=== PATIENT | male | born 1970 | race Caucasian/White ===

== ENCOUNTER 2018-06-09 11:12 | Inpatient (IN) | payer MEDICAID ==
[~2018-06-09] VITALS: Ht 172.7 cm; Wt 108.9 kg
[2018-06-09 11:20] VITALS: BP 135/76
--- NOTE | 2018-06-09 11:30 | NUR ---
PT AMBULATED TO ER BED 8.
--- NOTE | 2018-06-09 11:54 | NUR ---
PATIENT IS A 48 YO MALE BIB SELF FOR REPORTED ABNORMAL LABS WITH A HGB OF 6.7 AWAKE AND ALERT SLIGHTLY PALE. NO ACUTE DISTRESS. Addendum: 06/09/18 at 1426 by S*Bio Amendment undone in EDM - 06/09/18 at 1429 by S*Bio HX: DM, HTN,RFA AMPUTED X 3 YEARS AGO. MED: METFORMIN, GABAPENTIN, GLIPIZIDE
[2018-06-09] MEDS ORDERED: NACL 0.9% 1,000 ML IV ONE (12:11)
[2018-06-09 12:59] LABS: BASOPHILS # (AUTO) 0.1 K/uL (0.00-0.22); EOSINOPHILS # (AUTO) 0.3 K/uL (0-0.4); EOSINOPHILS % (AUTO) 6.5 % (0.0-4.0); HEMATOCRIT 21.1 % (36-52); LYMPHOCYTES # (AUTO) 0.9 K/uL (2.0-11.5); LYMPHOCYTES % (AUTO) 17.6 % (20.5-51.1); MEAN CORPUSCULAR HEMOGLOBIN 15 pg (27-31); MEAN CORPUSCULAR HGB CONC 27 g/dL (33-37); MEAN CORPUSCULAR VOLUME 55.4 fL (80-94); MONOCYTES # (AUTO) 0.4 K/uL (0.8-1.0); MONOCYTES % (AUTO) 7.7 % (1.7-9.3); NEUTROPHILS # (AUTO) 3.3 K/uL (1.8-7.7); NEUTROPHILS % (AUTO) 67.2 % (42.2-75.2); PLATELET COUNT (AUTO) 275 K/uL (140-450); RED CELL DISTRIBUTION WIDTH 20.9 % (11.6-13.7); WHITE BLOOD COUNT (AUTO) 4.9 K/uL (4.8-10.8)
[2018-06-09 13:09] LABS: CREATININE 0.5 mg/dL (0.7-1.3)
[2018-06-09 13:15] LABS: PROTHROMBIN TIME 9.8 secs (10.8-13.4)
[2018-06-09 13:17] LABS: ALBUMIN 3.6 g/dL (3.4-5.0); TOTAL BILIRUBIN 0.5 mg/dL (0.0-1.0)
[2018-06-09 13:28] LABS: HEMOGLOBIN 5.7 g/dL (12.0-18.0)
--- NOTE | 2018-06-09 14:26 | NUR ---
HX: CHRONIC ANEMIA, DM, HTN,RFA AMPUTED X 3 YEARS AGO. MED: METFORMIN, GABAPENTIN, GLIPIZIDE,BENAZEPRIL.
[2018-06-09 15:06] LABS: BILIRUBIN,URINE NEGATIVE (NEGATIVE); BLOOD, URINE NEGATIVE (NEGATIVE); COLOR,URINE YELLOW (YELLOW); LEUKOCYTE ESTERASE ,URINE 1+ (NEGATIVE); NITRITE, URINE NEGATIVE (NEGATIVE); PH,URINE 5.5 (5.0-9.0); UGLUCOSE NEGATIVE (NEGATIVE)
[2018-06-09 15:10] LABS: APPEARANCE,URINE HAZY (CLEAR)
[2018-06-09 15:43] LABS: RBC,URINE NONE SEEN /HPF (0-5)
[2018-06-09] MEDS ORDERED: DEXT 5% / NACL 0.45% 1,000 ML IV SCH (15:59)
[2018-06-09] MEDS ORDERED: ACETAMINOPHEN 325 MG TAB PO PRN (16:00)
[2018-06-09] MEDS ORDERED: ONDANSETRON 4 MG/2 ML VIAL IM/IVP PRN (16:00)
[2018-06-09] MEDS ORDERED: HYDROcodone/APAP 5/325 MG 1 TAB TAB PO PRN (16:00)
[2018-06-09] MEDS ORDERED: MORPHINE SULFATE 2 MG/ML SYR IVP PRN (16:00)
[2018-06-09] MEDS ORDERED: DOCUSATE SODIUM 100 MG GELCAP PO PRN (16:00)
[2018-06-09] MEDS ORDERED: ZOLPIDEM 5 MG TAB PO PRN (16:00)
[2018-06-09] MEDS ORDERED: LORazepam 2 MG/ML VIAL IM/IVP PRN (16:00)
--- NOTE | 2018-06-09 16:42 | NUR ---
Patient will be admitted to care of DR ARELLANO. Admited to TELE. Will go to room 111A. Belongings list completed. Report to MICHAEL RATLIFF.
--- NOTE | 2018-06-09 16:55 | NUR ---
RECEIVED PT FROM ER VIA SUSANA. PT A/O X4, VERBAL. SKIN DRY AND WARM TO TOUCH. S1S2 HEARD. LUNGS CLEAR ON AUSCULTATION. ABDOMEN SOFT ROUND AND NON TENDER. ACTIVE BOWEL SOUND. SKIN INTACT. LEFT AC 20 G. INTACT. DENIES SOB, DIFFICULTY BREATHING. DENIES ANY PAIN AT THIS TIME. KEPT HOB ELEVATED. BED IN LOW POSITION LOCKED. CALL LIGHT WITHIN REACH. WILL CONTINUE TO MONITOR.
[2018-06-09 17:10] LABS: BARBITURATE, URINE NEG. ng/ml (NEG <=200); BENZODIAZEPINE, URINE NEG. ng/mL (NEG <=200); CANNABINOID, URINE NEG. ng/mL (NEG <=50); COCAINE, URINE NEG. ng/mL (NEG <=300); OPIATE, URINE NEG. ng/mL (NEG <=2000); PHENCYCLIDINE SCREEN,URINE NEG. ng/mL (NEG <=25)
[2018-06-09 17:13] LABS: MAGNESIUM 1.7 mg/dL (1.8-2.4); THYROID STIMULATING HORMONE 1.83 uIU/mL (0.34-3.74)
[2018-06-09] MEDS ORDERED: DEXTROSE 50% 50 ML SYR IVP PRN (17:15)
[2018-06-09] MEDS ORDERED: INSULIN LISPRO SLIDING SCALE 100 UNITS/ML VIAL SUBQ PRN (17:15)
[2018-06-09] MEDS ORDERED: GABA400C PO (17:17)
[2018-06-09 17:59] VITALS: BP 154/84
--- NOTE | 2018-06-09 17:59 | NUR ---
US TECH AT BEDSIDE.
[2018-06-09] MEDS: DEXT 5% / NACL 0.9% 500 ML IV SCH (18:55)
[2018-06-09] MEDS ORDERED: MAGNESIUM OXIDE 400 MG TAB PO SCH (19:45)
--- NOTE | 2018-06-09 19:50 | NUR ---
RECEIVED REPORT FROM DAY SHIFT NURSE AT PT BEDSIDE. PT IN STABLE CONDITION. PT FAMILY IS AT BEDSIDE. PT IS A/O X4. IV ACCESS IN L AC 20G, SALINE LOCKED. IV IS PATENT AND INTACT. SKIN IS INTACT. PT HAS R BELOW THE ELBOW AMPUTATION. PT HAS NO C/O PAIN AT THIS TIME. BED IS LOCKED, LOW POSITION WITH SIDE RAILS UP X2. CALL LIGHT IS WITHIN REACH. BOARD UPDATED. WILL CONTINUE TO MONITOR PT.
--- NOTE | 2018-06-09 19:50 | NUR ---
ENDORSED TO POCKETED SPRING MACHINE OPERATOR RN FOR CONTINUITY OF CARE. PT ON STABLE CONDITION.
[2018-06-09 20:00] VITALS: BP 135/62
[2018-06-09] MEDS: BLOOD GLUCOSE MONITORING 1 DEV DEV FS SCH (20:32)
[2018-06-09] MEDS ORDERED: GLIP5TAB4 PO (20:42)
[2018-06-09] MEDS ORDERED: METF1000 PO (20:42)
[2018-06-09] MEDS ORDERED: BENA20TA PO (20:42)
--- NOTE | 2018-06-09 20:42 | NUR ---
PT INFORMED ME THAT HE TOOK HIS HOME MEDICATIONS FOR DM. INFORMED MD. PER MD WILL HOLD INSULIN COVERAGE FOR BS OF 162. EDUCATED PT ON IMPORTANCE OF NOT TAKING HOME MEDICATIONS WHILE IN THE HOSPITAL AND LET PT KNOW HIS HOME MEDICATIONS HAVE NOW BEEN PUT INTO THE EMAR BY MD. PT VERBALIZED UNDERSTANDING.
[2018-06-09] MEDS: glipiZIDE 5 MG TAB PO SCH (21:00)
[2018-06-09] MEDS ORDERED: metFORMIN 500 MG TAB PO SCH (21:00)
--- NOTE | 2018-06-09 21:00 | NUR ---
SCHEDULED GLIPIZIDE AND METFORMIN NOT ADMINISTERED D/T PT ALREADY TOOK THEM. AWARE.
[2018-06-09] MEDS: ACETAMINOPHEN 325 MG TAB PO SCH (22:31)
--- NOTE | 2018-06-09 22:32 | NUR ---
PER MD ORDERS, BENADRYL AND TYLENOL GIVEN PRE TRANSFUSION. PT TOLERATED WELL. WILL CONTINUE TO MONITOR.
--- NOTE | 2018-06-09 22:45 | NUR ---
BLOOD TRANSFUSION STARTED. PT IN STABLE CONDITION. PRE TRANSFUSION VS STABLE. NO C/O PAIN. WILL CONTINUE TO MONITOR.
--- NOTE | 2018-06-09 23:15 | NUR ---
PT RESTING COMFORTABLY IN BED. NO SIGNS OF DISTRESS. WILL CONTINUE TO MONITOR PT.
[2018-06-10] VITALS: BP 142/55
[2018-06-10] MEDS: FUROSEMIDE 20 MG TAB PO SCH ×2 (00:13→03:02)
--- NOTE | 2018-06-10 00:13 | NUR ---
ADMINISTERED SCHEDULED MEDICATION. BLOOD TRANSFUSION STILL IN PROCESS. PT IS TOLERATING WELL. VS STABLE. NO C/O PAIN. WILL CONTINUE TO MONITOR PT.
--- NOTE | 2018-06-10 01:10 | NUR ---
BLOOD TRANSFUSION COMPLETED. PT VS STABLE. NO C/O PAIN. WILL CONTINUE TO MONITOR PT.
--- NOTE | 2018-06-10 02:25 | NUR ---
SECOND UNIT OF PRBC STARTED. PT IN STABLE CONDITION. VS WITHIN NORMAL LIMITS. WILL CONTINUE TO MONITOR.
[2018-06-10] MEDS: ACETAMINOPHEN 325 MG TAB PO SCH ×2 (03:02→08:00)
--- NOTE | 2018-06-10 03:02 | NUR ---
SCHEDULED MEDICATIONS ADMINISTERED. PT TOLERATED WELL. VS WITHIN NORMAL LIMITS. NO C/O PAIN AT THIS TIME. WILL CONTINUE TO MONITOR PT.
[2018-06-10 04:00] VITALS: BP 139/79
[2018-06-10] MEDS: BLOOD GLUCOSE MONITORING 1 DEV DEV FS SCH ×4 (05:26→20:48)
--- NOTE | 2018-06-10 05:40 | NUR ---
SECOND BAG OF PRBC INFUSION COMPLETE. PT VS WITHIN NORMAL LIMITS. NO SIGNS OF DISTRESS. WILL CONTINUE TO MONITOR.
--- NOTE | 2018-06-10 07:25 | NUR ---
ENDORSED PT TO DAY SHIFT NURSE FOR CONTINUITY OF CARE. PT IN STABLE CONDITION.
--- NOTE | 2018-06-10 07:30 | NUR ---
RECEIVED REPORT FROM CHILD CARE SPECIALIST RN. PATIENT IN STABLE CONDITION. AAO X4. NO COMPLAINTS OF PAIN OR DISCOMFORT. PT IS AMBULATORY. SKIN INTACT. AMPUTATED RIGHT FA NOTED. LUNGS CTA. IV SITE PATENT AND ASYMPTOMATIC. ALL SAFETY MEASURES IN PLACE, WILL CONTINUE TO MONITOR. UPDATED BOARD AND ORIENTED PATIENT.
[2018-06-10 07:39] LABS: T4 (THYROXINE) 8.9 ug/dL (4.5-12.0)
[2018-06-10 07:41] LABS: EOSINOPHILS # (AUTO) 0.3 K/uL (0-0.4); HEMATOCRIT 24.9 % (36-52); HEMOGLOBIN 7.4 g/dL (12.0-18.0); LYMPHOCYTES # (AUTO) 1.1 K/uL (2.0-11.5); LYMPHOCYTES % (AUTO) 24.5 % (20.5-51.1); MEAN CORPUSCULAR HEMOGLOBIN 18 pg (27-31); MEAN CORPUSCULAR HGB CONC 30 g/dL (33-37); MEAN CORPUSCULAR VOLUME 60.1 fL (80-94); MONOCYTES # (AUTO) 0.4 K/uL (0.8-1.0); MONOCYTES % (AUTO) 9.7 % (1.7-9.3); NEUTROPHILS # (AUTO) 2.7 K/uL (1.8-7.7); NEUTROPHILS % (AUTO) 58.8 % (42.2-75.2); PLATELET COUNT (AUTO) 267 K/uL (140-450); RED BLOOD CELL COUNT(AUTO) 4.14 MIL/uL (4.20-6.10); RED CELL DISTRIBUTION WIDTH 27.7 % (11.6-13.7); WHITE BLOOD COUNT (AUTO) 4.6 K/uL (4.8-10.8)
[2018-06-10 08:00] VITALS: BP 137/77
[2018-06-10 08:05] LABS: ANION GAP 10.7 (8-16); CARBON DIOXIDE 26.8 mmol/L (21-32); CREATININE 0.6 mg/dL (0.7-1.3); POTASSIUM 3.5 mmol/L (3.5-5.1)
[2018-06-10 08:16] LABS: MAGNESIUM 1.8 mg/dL (1.8-2.4)
[2018-06-10 08:21] LABS: CHOL/HDL RATIO 3.9 (1-4.5)
--- NOTE | 2018-06-10 08:45 | NUR ---
PATIENT HAS BEEN SCREENED AND CATEGORIZED MODERATE NUTRITION RISK. PATIENT WILL BE SEEN WITHIN 3-5 DAYS OF ADMISSION. 06/12/18 06/14/[address]
[2018-06-10] MEDS ORDERED: GABAPENTIN 100 MG CAP PO SCH (09:00)
[2018-06-10] MEDS: FERROUS SULFATE 325 MG TABEC PO SCH ×3 (09:26→16:38)
[2018-06-10] MEDS: GABAPENTIN 300 MG CAP PO SCH ×3 (09:26→16:38)
[2018-06-10] MEDS: metFORMIN 500 MG TAB PO SCH ×2 (09:26→16:38)
[2018-06-10] MEDS: glipiZIDE 5 MG TAB PO SCH ×2 (09:26→20:47)
[2018-06-10] MEDS: GABAPENTIN 100 MG CAP PO SCH ×3 (09:27→16:38)
[2018-06-10] MEDS: BENAZEPRIL 5 MG TAB PO SCH (09:34)
[2018-06-10] MEDS: SODIUM FERRIC GLUCONATE 125 MG in NACL 0.9% 100 ML IV SCH (09:42)
[2018-06-10] MEDS: DEXT 5% / NACL 0.9% 500 ML IV SCH (09:45)
--- NOTE | 2018-06-10 10:15 | NUR ---
EXPLAINED TO PT THE NEED TO COLLECT OCCULT STOOL SAMPLE. PT VERBALIZED UNDERSTANDING AND WILL NOTIFY RN WHEN SAMPLE IS READY. HAT PLACED IN TOILET.
--- NOTE | 2018-06-10 11:29 | NUR ---
OCCULT BLOOD SAMPLE COLLECTED. WILL SEND TO LAB.
--- NOTE | 2018-06-10 11:55 | NUR ---
CM NOTE INITIAL REVIEW FAXED TO [facility] [phone] CM BELKYS Manuel PH# [phone]
[2018-06-10 12:00] VITALS: BP 129/74
[2018-06-10 12:37] LABS: FOLIC ACID 13.9 ng/mL (>3.0)
--- NOTE | 2018-06-10 13:20 | NUR ---
FAMILY MEMBER SEEN AT BEDSIDE. PT IS RESTING IN BED, AAO X4. NO COMPLAINTS OF PAIN OR DISCOMFORT. Addendum: 06/10/18 at 1943 by Becky Vega Meng, RN EXPLAINED PLAN OF CARE TO PT AND FAMILY MEMBER AT BEDSIDE. PT VERBALIZED COMPLETE UNDERSTANDING.
--- NOTE | 2018-06-10 14:10 | NUR ---
PT COMPLAINING OF ONE PASSING INSTANCE OF NAUSEA. INSTRUCTED PT TO NOTIFY RN IF NAUSEA EXPERIENCED AGAIN. WILL CONTINUE TO MONITOR.
--- NOTE | 2018-06-10 15:20 | NUR ---
PT DENIES NAUSEA AND VOMITING. WILL CONTINUE TO MONITOR.
[2018-06-10 16:00] VITALS: BP 137/77
--- NOTE | 2018-06-10 16:36 | NUR ---
SCHEDULED MEDICATIONS ADMINISTERED PER MD ORDERS. NO COMPLAINTS OF PAIN OR DISCOMFORT. WILL CONTINUE TO MONITOR.
--- NOTE | 2018-06-10 17:45 | NUR ---
DR. CARRASCO IN ROOM TO EXPLAIN PLAN OF CARE TO PT.
--- NOTE | 2018-06-10 19:15 | NUR ---
RECEIVED REPORT FROM DAY SHIFT NURSE AT PT BEDSIDE. PT IS IN STABLE CONDITION. FAMILY IS AT BEDSIDE. PT IS A/O X4. PT IS ON RA. SKIN IS INTACT. NO C/O PAIN AT THIS TIME. BED IS LOCKED, LOW POSITION WITH SIDE RAILS UP X2. BOARD UPDATED. CALL LIGHT IS WITHIN REACH. WILL CONTINUE TO MONITOR PT.
--- NOTE | 2018-06-10 19:30 | NUR ---
ENDORSED PLAN OF CARE TO LEAD CASHIER RN. PT IN STABLE CONDITION.
--- NOTE | 2018-06-10 19:42 | NUR ---
EXPLAINED PLAN OF CARE TO PT AND FAMILY MEMBER AT BEDSIDE. PT VERBALIZED COMPLETE UNDERSTANDING. Addendum: 06/10/18 at 1943 by Becky Vega Meng, RN WRONG TIME.
[2018-06-10 20:00] VITALS: BP 117/72
--- NOTE | 2018-06-10 20:48 | NUR ---
BS CHECKED, 127. NO INSULIN COVERAGE NEEDED PER MD ORDERS. ALL PT NEEDS ARE MET AT THIS TIME. WILL CONTINUE TO MONITOR.
[2018-06-10 21:15] LABS: EOSINOPHILS % (MANUAL) 4 % (0-4); LYMPHOCYTES % (MANUAL) 26 % (20-46); MONOCYTES % (MANUAL) 10 % (5-12)
--- NOTE | 2018-06-10 22:54 | NUR ---
PT RESTING IN BED WATCHING TV. ALL NEEDS ARE MET AT THIS TIME. WILL CONTINUE TO MONITOR PT.
[2018-06-11] VITALS: BP 144/72
--- NOTE | 2018-06-11 00:43 | NUR ---
PT ASLEEP IN BED. NO SIGNS OR SYMPTOMS OF DISTRESS. WILL CONTINUE TO MONITOR.
--- NOTE | 2018-06-11 02:33 | NUR ---
NO CHANGE IN CONDITION. WILL CONTINUE TO MONITOR PT.
[2018-06-11 04:00] VITALS: BP 124/72
--- NOTE | 2018-06-11 04:52 | NUR ---
PT RESTING IN BED COMFORTABLY WATCHING TV. ALL NEEDS ARE MET AT THIS TIME. WILL CONTINUE TO MONITOR.
[2018-06-11] MEDS: BLOOD GLUCOSE MONITORING 1 DEV DEV FS SCH ×2 (05:56→11:48)
--- NOTE | 2018-06-11 05:56 | NUR ---
BS CHECKED, 97. PER MD ORDERS NO COVERAGE NEEDED. WILL CONTINUE TO MONITOR.
--- NOTE | 2018-06-11 07:19 | NUR ---
ENDORSED PT TO DAY SHIFT NURSE FOR CONTINUITY OF CARE. PT IN STABLE CONDITION.
--- NOTE | 2018-06-11 07:30 | NUR ---
RECEIVED PT FROM PM NURSE, PT AWAKE, ALERT. ON ROOM AIR, NO S/S OF RESPIRATORY DISTRESS NOTED. LUNGS SOUND CLEAR, NO COUGH NOTED. IV TO LEFT AV # 20, IT IS LEAKING ,WILL INSERT A NEW ONE. PT AGREED. ABD SOFT, NON TENDER. PT ABLE TO AMBULATE. POC EXPLAINED TO PT, PT VERBALIZED UNDERSTANDING, CALL LIGHT IN REACH. WILL CONTINUE TO MONITOR.
[2018-06-11 08:00] VITALS: BP 129/81
--- NOTE | 2018-06-11 08:00 | NUR ---
INSERTED NEW IV TO LEFT HAND # 22.
[2018-06-11] MEDS: GABAPENTIN 300 MG CAP PO SCH ×2 (08:12→12:29)
[2018-06-11] MEDS: glipiZIDE 5 MG TAB PO SCH (08:13)
[2018-06-11] MEDS: BENAZEPRIL 5 MG TAB PO SCH (08:13)
[2018-06-11] MEDS: metFORMIN 500 MG TAB PO SCH (08:13)
[2018-06-11] MEDS: GABAPENTIN 100 MG CAP PO SCH ×2 (08:14→12:29)
[2018-06-11] MEDS: FERROUS SULFATE 325 MG TABEC PO SCH ×2 (08:14→12:29)
[2018-06-11] MEDS ORDERED: FER325 PO (08:15)
[2018-06-11 08:29] LABS: BASOPHILS # (AUTO) 0.1 K/uL (0.00-0.22); BASOPHILS % (AUTO) 1.1 % (0.0-2.0); EOSINOPHILS # (AUTO) 0.3 K/uL (0-0.4); EOSINOPHILS % (AUTO) 5.7 % (0.0-4.0); HEMATOCRIT 25.1 % (36-52); HEMOGLOBIN 7.6 g/dL (12.0-18.0); LYMPHOCYTES # (AUTO) 1.1 K/uL (2.0-11.5); LYMPHOCYTES % (AUTO) 18.5 % (20.5-51.1); MEAN CORPUSCULAR HEMOGLOBIN 18 pg (27-31); MEAN CORPUSCULAR HGB CONC 30 g/dL (33-37); MEAN CORPUSCULAR VOLUME 60.1 fL (80-94); MONOCYTES # (AUTO) 0.5 K/uL (0.8-1.0); MONOCYTES % (AUTO) 8.5 % (1.7-9.3); NEUTROPHILS # (AUTO) 3.9 K/uL (1.8-7.7); NEUTROPHILS % (AUTO) 66.2 % (42.2-75.2); PLATELET COUNT (AUTO) 274 K/uL (140-450); RED BLOOD CELL COUNT(AUTO) 4.17 MIL/uL (4.20-6.10); RED CELL DISTRIBUTION WIDTH 27.3 % (11.6-13.7); WHITE BLOOD COUNT (AUTO) 5.9 K/uL (4.8-10.8)
[2018-06-11 08:48] LABS: ANION GAP 13.2 (8-16); CARBON DIOXIDE 25.2 mmol/L (21-32); CREATININE 0.5 mg/dL (0.7-1.3); POTASSIUM 3.4 mmol/L (3.5-5.1)
--- NOTE | 2018-06-11 09:00 | NUR ---
DUE MEDS GIVEN, PT TOLERATED WELL.
[2018-06-11 09:14] LABS: MAGNESIUM 1.8 mg/dL (1.8-2.4); PHOSPHORUS 4.3 mg/dL (2.5-4.9)
[2018-06-11] MEDS: SODIUM FERRIC GLUCONATE 125 MG in NACL 0.9% 100 ML IV SCH (09:22)
--- NOTE | 2018-06-11 10:05 | NUR ---
PT AWAKE, ALERT. EXPLAINED TO PT I RECEIVED DISCHARGE ORDER FROM . PT STATED HE WANTS TO BE DISCHARGED AT 1400 HE NEEDS HIS TO GIVE HIM A RIDE.
--- NOTE | 2018-06-11 11:13 | NUR ---
FAXED CONCURRENT REVIEW INCLUDING DISCHARGE SUMMARY TO [facility] [place] [phone] PHONE BELKYS [phone]
[2018-06-11 12:00] VITALS: BP 128/80
--- NOTE | 2018-06-11 12:00 | NUR ---
ASSIST PT TO GO TO BATH ROOM, NO DISTRESS OR DISCOMFORT NOTED.
[2018-06-11] MEDS ORDERED: POTASSIUM CHLORIDE 10 MEQ TABER PO SCH (13:00)
--- NOTE | 2018-06-11 14:25 | NUR ---
PT'S PRESENT TO BEDSIDE, PT REQUESTED HIS TO SIGN DISCHARGE PAPER DUE TO HIS RIGHT ARM AMPUTATION. PT AWAKE, ALERT. NO S/S OF RESPIRATORY DISTRESS NOTED. PRESCRIPTION GIVEN. DISCHARGE PAPER SIGNED AND VERBALIZED UNDERSTANDING,ALL PERSONAL BELONGINGS WITH PT. IV REMOVED, QUESTIONS ANSWERED. OFFERED PT WHEELCHAIR, PT STATED HE WANTS TO WALK BY HIMSELF. PT LEFT WITH HIS WITH STEADY GAIT, PT STABLE UPON DISCHARGE.
== END 2018-06-11 14:25 | disposition home or self-care (01) | DRG 663 ==
LOC: MED 11:12 → MTU 15:59
PROVIDERS: ADMIT General Practice; ATTEND General Practice
PROC: 30233N1 Transfusion of Nonautologous Red Blood Cells into Peripheral Vein, Percutaneous Approach (ICD-10-PCS; principal; 2018-06-09)
DX: D50.9 Iron deficiency anemia, unspecified (principal); E11.42 Type 2 diabetes mellitus with diabetic polyneuropathy; E66.01 Morbid (severe) obesity due to excess calories; E83.42 Hypomagnesemia; I10 Essential (primary) hypertension; F32.9 Major depressive disorder, single episode, unspecified; G47.33 Obstructive sleep apnea (adult) (pediatric); Z89.201 Acquired absence of right upper limb, unspecified level; Z68.36 Body mass index [BMI] 36.0-36.9, adult; Z79.84 Long term (current) use of oral hypoglycemic drugs; Z79.899 Other long term (current) drug therapy; Z83.3 Family history of diabetes mellitus; Z82.49 Family history of ischemic heart disease and other diseases of the circulatory system; Z71.3 Dietary counseling and surveillance
CPT/HCPCS: 36415; 71045; 80048; 80053; 80305; 81001; 82272; 82607; 82728; 82746; 82948; 83036; 83540; 83690; 83735; 83880; 84100; 84134; 84436; 84443; 84484; 85025; 85045; 85610; 85730; 86886; 86900; 86901; 86920; 87081; 87086; 93005; 93925; 93970; 96360; 96361; 99285; J1815; J2916; J7030; J7042; P9016; Q0092; Q0163

== ENCOUNTER 2019-04-29 11:02 | Day surgery (SDC) | payer MEDICAID ==
[~2019-04-29] VITALS: Ht 172.7 cm; Wt 108.9 kg
[~2019-04-29 11:02] MED LIST: BENA20TA PO; FER325 PO; GABA400C PO; GLIP5TAB4 PO; METF1000 PO
[2019-04-29] MEDS ORDERED: LIDOCAINE 2% 100 MG/5 ML UJET TP ONE (13:42)
[2019-04-29] MEDS ORDERED: fentaNYL 0.05 MG/ML VIAL ONE (13:42)
== END 2019-04-29 15:57 | disposition home or self-care (01) ==
LOC: MOR 11:02 → MMU 11:03 → MOR 15:57
PROVIDERS: ATTEND Internal Medicine Gastroenterology
DX: D12.3 Benign neoplasm of transverse colon (principal); D37.4 Neoplasm of uncertain behavior of colon; D50.0 Iron deficiency anemia secondary to blood loss (chronic); I10 Essential (primary) hypertension; E11.40 Type 2 diabetes mellitus with diabetic neuropathy, unspecified
CPT/HCPCS: 45380; 45381; 82948; 88305; J3010

== ENCOUNTER 2019-07-11 11:45 | Emergency (ER) | payer MEDICAID ==
[~2019-07-11] VITALS: Ht 172.7 cm; Wt 104.3 kg
[2019-07-11 11:55] VITALS: BP 128/84
[2019-07-11 12:39] VITALS: BP 128/84
== END 2019-07-11 12:39 | disposition home or self-care (01) ==
LOC: MED 11:45
DX: Z01.810 Encounter for preprocedural cardiovascular examination (principal); E11.9 Type 2 diabetes mellitus without complications; I10 Essential (primary) hypertension; Z98.890 Other specified postprocedural states; Z79.899 Other long term (current) drug therapy; Z79.84 Long term (current) use of oral hypoglycemic drugs
CPT/HCPCS: 93005; 99283

== ENCOUNTER 2022-01-29 12:26 | Emergency (ER) | payer MEDICAID ==
[~2022-01-29] VITALS: Ht 172.7 cm; Wt 98.2 kg
[~2022-01-29 12:26] MED LIST changes: +GLIP5TAB14 PO; -GLIP5TAB4 PO
[2022-01-29 12:51] VITALS: BP 148/96
--- NOTE | 2022-01-29 13:02 | NUR ---
PT TO T[facility]CRACK[facility]
--- NOTE | 2022-01-29 13:42 | NUR ---
51Y MALE BIB SELF DUE TO RLQ PAIN AND N/V SINCE 01/25/22. PER PATIENT HE ONLY FEELS THE PAIN IN HIS RLQ WHEN HE IS LAYING ON HIS R SIDE. DENIES ANY ABDOMINAL PAIN WHEN SITTING, STANDING, OR LAYING ON L SIDE. PT STATED HE HAS BEEN FEELING N/V AND IS UNABLE TO KEEP ANY FOOD/LIQUIDS DOWN. BOWEL SOUNDS ACTIVE. ABDOMEN IS SOFT AND NON-TENDER. ACCUCHECK 185. PT A&OX4, EQUAL CHEST RISE AND FALL. UNLABORED RESPIRATIONS. PT HOB ELEVATED FOR COMFORT. PMH: DM, RT ARM AMPUTATION NKA
--- NOTE | 2022-01-29 14:26 | NUR ---
DR. CABAN BEDSIDE EVALUATING PT
[2022-01-29] MEDS ORDERED: ONDANSETRON 4 MG TAB PO ONE (14:35)
[2022-01-29] MEDS ORDERED: FAMOTIDINE 20 MG TAB PO ONE (14:35)
--- NOTE | 2022-01-29 14:53 | NUR ---
LAB BEDSIDE COLLECTING BLOODWORK
[2022-01-29 15:11] LABS: BASOPHILS % (AUTO) 0.2 % (0.0-2.0); EOSINOPHILS % (AUTO) 0.6 % (0.0-4.0); HEMATOCRIT 45.6 % (36-52); HEMOGLOBIN 15.5 g/dL (12.0-18.0); LYMPHOCYTES % (AUTO) 17.1 % (20.5-51.1); MEAN CORPUSCULAR HEMOGLOBIN 31 pg (27-31); MEAN CORPUSCULAR HGB CONC 34 g/dL (33-37); MEAN CORPUSCULAR VOLUME 90.8 fL (80-94); MONOCYTES # (AUTO) 0.4 K/uL (0.8-1.0); MONOCYTES % (AUTO) 7.5 % (1.7-9.3); NEUTROPHILS # (AUTO) 4.3 K/uL (1.8-7.7); NEUTROPHILS % (AUTO) 74.6 % (42.2-75.2); PLATELET COUNT (AUTO) 214 K/uL (140-450); RED BLOOD CELL COUNT(AUTO) 5.02 MIL/uL (4.20-6.10); RED CELL DISTRIBUTION WIDTH 13.7 % (11.6-13.7); WHITE BLOOD COUNT (AUTO) 5.8 K/uL (4.8-10.8)
[2022-01-29 15:13] VITALS: BP 149/78
--- NOTE | 2022-01-29 15:14 | NUR ---
PT REASSESED, STATED THAT THE NAUSEA AND PAIN WERE DECREASED, STATED THAT "THEIR STOMACH WAS JUST SORE FROM ALL THE VOMITING"
[2022-01-29 15:34] LABS: ALBUMIN 3.8 g/dL (3.4-5.0); ANION GAP 11.3 (8-16); ASPARTATE AMINOTRANSFERASE 30 U/L (15-37); CARBON DIOXIDE 29.2 mmol/L (21-32); CHLORIDE 101 mmol/L (98-107); CREATININE 0.7 mg/dL (0.6-1.3); GFR ARICAN-AMERICAN 152 mL/min (>90); GLUCOSE 131 mg/dL (74-106); LIPASE 77 U/L (73-393); POTASSIUM 3.5 mmol/L (3.5-5.1); SODIUM SERUM 138 mmol/L (136-145); TOTAL BILIRUBIN 0.7 mg/dL (0.0-1.0); UREA NITROGEN, BLOOD 6 mg/dL (7-18)
[2022-01-29] MEDS ORDERED: ONDA-188 PO (16:02)
[2022-01-29] MEDS ORDERED: MAG355OR2 PO (16:02)
[2022-01-29] MEDS ORDERED: FAMO-90 PO (16:02)
--- NOTE | 2022-01-29 16:17 | NUR ---
Patient discharged with v/s stable. Written and verbal after care instructions ABOUT GASTRITIS AND N/V given and explained. Patient alert, oriented and verbalized understanding of instructions. Ambulatory with steady gait. All questions addressed prior to discharge. ID band removed. Patient advised to follow up with PMD. Rx of PEPCID, MAALOX MAX STRENGTH SUSPENSION, ZOFRAN ODT given. Patient educated on indication of medication including possible reaction and side effects. Opportunity to ask questions provided and answered.
== END 2022-01-29 16:17 | disposition home or self-care (01) ==
LOC: MED 12:26
DX: K29.70 Gastritis, unspecified, without bleeding (principal); E11.65 Type 2 diabetes mellitus with hyperglycemia; Z79.899 Other long term (current) drug therapy
CPT/HCPCS: 36415; 80053; 81002; 82948; 83690; 84484; 85025; 93005; 99284; Q0162

== ENCOUNTER 2022-02-02 07:52 | Emergency (ER) | payer MEDICAID ==
[~2022-02-02] VITALS: Ht 172.7 cm; Wt 98.0 kg
[~2022-02-02 07:52] MED LIST changes: +FAMO-90 PO; +MAG355OR2 PO; +ONDA-188 PO
[2022-02-02 07:57] VITALS: BP 143/86
[2022-02-02] MEDS: NACL 0.9% 1,000 ML IV ONE (08:32)
[2022-02-02] MEDS: ONDANSETRON 4 MG/2 ML VIAL IVP ONE (08:34)
[2022-02-02] MEDS: MORPHINE SULFATE 4 MG/ML SYR IVP ONE (08:36)
[2022-02-02 08:37] LABS: BASOPHILS % (AUTO) 0.5 % (0.0-2.0); EOSINOPHILS # (AUTO) 0.1 K/uL (0-0.4); EOSINOPHILS % (AUTO) 1.6 % (0.0-4.0); HEMATOCRIT 45.1 % (36-52); HEMOGLOBIN 15.4 g/dL (12.0-18.0); LYMPHOCYTES % (AUTO) 14.3 % (20.5-51.1); MEAN CORPUSCULAR HEMOGLOBIN 31 pg (27-31); MEAN CORPUSCULAR HGB CONC 34 g/dL (33-37); MEAN CORPUSCULAR VOLUME 90.6 fL (80-94); MONOCYTES # (AUTO) 0.6 K/uL (0.8-1.0); NEUTROPHILS % (AUTO) 74.6 % (42.2-75.2); PLATELET COUNT (AUTO) 213 K/uL (140-450); RED BLOOD CELL COUNT(AUTO) 4.98 MIL/uL (4.20-6.10); RED CELL DISTRIBUTION WIDTH 13.7 % (11.6-13.7); WHITE BLOOD COUNT (AUTO) 6.7 K/uL (4.8-10.8)
[2022-02-02] MEDS: diphenhydrAMINE 50 MG/ML VIAL IVP ONE (09:28)
[2022-02-02] MEDS: METOCLOPRAMIDE 10 MG/2 ML INJ VIAL IVP ONE (09:29)
[2022-02-02 10:27] LABS: ALBUMIN 3.7 g/dL (3.4-5.0); ANION GAP 17.9 (8-16); CARBON DIOXIDE 24.8 mmol/L (21-32); CREATININE 0.8 mg/dL (0.6-1.3); POTASSIUM 3.7 mmol/L (3.5-5.1); TOTAL BILIRUBIN 0.9 mg/dL (0.0-1.0)
[2022-02-02 10:47] LABS: BILIRUBIN,URINE NEGATIVE (NEGATIVE); BLOOD, URINE NEGATIVE (NEGATIVE); COLOR,URINE YELLOW (YELLOW); LEUKOCYTE ESTERASE ,URINE TRACE (NEGATIVE); NITRITE, URINE NEGATIVE (NEGATIVE); UGLUCOSE NEGATIVE (NEGATIVE)
[2022-02-02 10:50] LABS: APPEARANCE,URINE SLIGHTLY HAZY (CLEAR)
[2022-02-02 10:57] LABS: HYALINE CASTS, URINE 0-10 /LPF (None Seen); RBC,URINE NONE SEEN /HPF (0-5); WBC,URINE 0-5 /HPF (0-5)
[2022-02-02] MEDS ORDERED: BEN10 PO (11:47)
[2022-02-02] MEDS ORDERED: ONDA-188 PO (11:47)
[2022-02-02 12:03] VITALS: BP 173/101
== END 2022-02-02 12:03 | disposition home or self-care (01) ==
LOC: MED 07:52
DX: R11.2 Nausea with vomiting, unspecified (principal); R10.9 Unspecified abdominal pain; R63.0 Anorexia; E11.9 Type 2 diabetes mellitus without complications; Z79.899 Other long term (current) drug therapy; Z79.84 Long term (current) use of oral hypoglycemic drugs; Z89.211 Acquired absence of right upper limb below elbow; Z98.890 Other specified postprocedural states
CPT/HCPCS: 36415; 74176; 80053; 81001; 83690; 85025; 96361; 96374; 96375; 99285; J1200; J2270; J2405; J2765

== ENCOUNTER 2022-04-08 08:43 | Emergency (ER) | payer MEDICAID ==
[~2022-04-08] VITALS: Ht 172.7 cm; Wt 95.8 kg
[~2022-04-08 08:43] MED LIST changes: +BEN10 PO; +METF-1274 PO; -METF1000 PO
[2022-04-08 08:58] VITALS: BP 136/90
--- NOTE | 2022-04-08 09:08 | NUR ---
pt ambulated to bed 12 at this time
--- NOTE | 2022-04-08 09:10 | NUR ---
54 y/o male bib , c/o central abd pain, nausea, burping and bloating for 1 month. pt states he was atking pepcid, peptobismol and gas x for relief. states he does smoking marijuana and etoh use daily. pt was seen here on 01/29/2022 and diagnosed with gastritis. He was seen here 4 days later and dx with hepatomegaly. pt has an appointment see programmer engineering and scientific in a few days. skin is pink/warm/dry. a&o x4 with even and steady gait. lungs clear bl, heart rate even and regular. pt denies dysuria, hematuria, urinary frequency or retention, or anyone sick in the household with the same symptoms. pt denies any fever, cp, sob, or cough at this time. pt states pain is 9/10 at this time. patient positioned for comfort. hob elevated. bed down. ermd made aware of pt. pmh: hepatomegaly, hernia nka med: denies
[2022-04-08] MEDS ORDERED: ONDA-188 PO (10:24)
[2022-04-08] MEDS ORDERED: OMEP40EC24 PO (10:24)
--- NOTE | 2022-04-08 10:51 | NUR ---
Patient discharged with v/s stable. Written and verbal after care instructions ABOUT GASTRITIS, VENTRAL HERNIA, CANNABIS USE DISORDER, GASTROPARESIS given and explained. Patient alert, oriented and verbalized understanding of instructions. Ambulatory with steady gait. All questions addressed prior to discharge. ID band removed. Patient advised to follow up with PMD. Rx of OMEPRAZOLE AND ZOFRAN given. Patient educated on indication of medication including possible reaction and side effects. Opportunity to ask questions provided and answered.
== END 2022-04-08 10:51 | disposition home or self-care (01) ==
LOC: MED 08:43
DX: K43.9 Ventral hernia without obstruction or gangrene (principal); K29.70 Gastritis, unspecified, without bleeding; E11.9 Type 2 diabetes mellitus without complications; F12.10 Cannabis abuse, uncomplicated; F10.129 Alcohol abuse with intoxication, unspecified; Z79.4 Long term (current) use of insulin; Z79.899 Other long term (current) drug therapy
CPT/HCPCS: 99283

== ENCOUNTER 2023-01-27 09:58 | Emergency (ER) | payer MEDICAID ==
[~2023-01-27] VITALS: Ht 172.7 cm; Wt 90.7 kg
[~2023-01-27 09:58] MED LIST changes: +OMEP40EC24 PO
[2023-01-27 10:12] VITALS: BP 128/77
--- NOTE | 2023-01-27 10:14 | NUR ---
PT AMBULATED TO ER BED 8
--- NOTE | 2023-01-27 10:18 | NUR ---
52/M ACCOMPANIED BY C/O NVD X 5 DAYS. DENIES COUGH OR FEVER. PT DENIES CONSUMING FOOD OUT OF NORM. DENIES BLOOD IN STOOL OR VOMIT. PMH: DM, HTN, TN (OCT 2022), RIGHT ARM AMPUTATION
--- NOTE | 2023-01-27 10:31 | NUR ---
EKG DONE AT BEDSIDE
--- NOTE | 2023-01-27 10:31 | NUR ---
LANIE AND FLU COLLECTED. URINE COLLECTED AND SENT TO LAB
[2023-01-27 10:48] LABS: BASOPHILS % (AUTO) 0.3 % (0.0-2.0); EOSINOPHILS # (AUTO) 0.1 K/uL (0-0.4); EOSINOPHILS % (AUTO) 0.9 % (0.0-4.0); HEMATOCRIT 41.9 % (36-52); HEMOGLOBIN 14.5 g/dL (12.0-18.0); LYMPHOCYTES # (AUTO) 1.1 K/uL (2.0-11.5); LYMPHOCYTES % (AUTO) 14.4 % (20.5-51.1); MEAN CORPUSCULAR HEMOGLOBIN 31 pg (27-31); MEAN CORPUSCULAR HGB CONC 35 g/dL (33-37); MONOCYTES # (AUTO) 0.8 K/uL (0.8-1.0); MONOCYTES % (AUTO) 10.1 % (1.7-9.3); NEUTROPHILS # (AUTO) 5.7 K/uL (1.8-7.7); NEUTROPHILS % (AUTO) 74.3 % (42.2-75.2); PLATELET COUNT (AUTO) 244 K/uL (140-450); RED BLOOD CELL COUNT(AUTO) 4.71 MIL/uL (4.20-6.10); WHITE BLOOD COUNT (AUTO) 7.7 K/uL (4.8-10.8)
[2023-01-27 11:07] LABS: ANION GAP 15.1 (8-16); CREATININE 1.2 mg/dL (0.6-1.3); POTASSIUM 3.1 mmol/L (3.5-5.1); TOTAL BILIRUBIN 1.3 mg/dL (0.0-1.0)
[2023-01-27] MEDS ORDERED: POTASSIUM CHLORIDE 10 MEQ TABER PO ONE (11:20)
[2023-01-27] MEDS ORDERED: NACL 0.9% 1,000 ML IV ONE (11:20)
[2023-01-27] MEDS ORDERED: ONDANSETRON 4 MG ODT PO ONE (11:30)
[2023-01-27] MEDS ORDERED: LOPERAMIDE 2 MG CAP PO ONE (11:30)
[2023-01-27 12:15] VITALS: BP 132/75
[2023-01-27 12:16] LABS: APPEARANCE,URINE CLEAR (CLEAR); BILIRUBIN,URINE NEGATIVE (NEGATIVE); BLOOD, URINE NEGATIVE (NEGATIVE); COLOR,URINE YELLOW (YELLOW); LEUKOCYTE ESTERASE ,URINE 2+ (NEGATIVE); NITRITE, URINE NEGATIVE (NEGATIVE); UGLUCOSE NEGATIVE (NEGATIVE)
[2023-01-27] MEDS ORDERED: BEN10 PO (12:35)
[2023-01-27] MEDS ORDERED: BISM262C47 PO (12:35)
[2023-01-27] MEDS ORDERED: POTA10TA70 PO (12:35)
[2023-01-27] MEDS ORDERED: LOPE1TAB14 PO (12:35)
--- NOTE | 2023-01-27 12:45 | NUR ---
Patient discharged with v/s stable. Written and verbal after care instructions given and explained. Patient alert, oriented and verbalized understanding of instructions. Ambulatory with steady gait. All questions addressed prior to discharge. ID band removed. Patient advised to follow up with PMD. Rx of immodium, bentyl. peptobismol given. Patient educated on indication of medication including possible reaction and side effects. Opportunity to ask questions provided and answered.
== END 2023-01-27 12:44 | disposition home or self-care (01) ==
LOC: MED 09:58
DX: A08.4 Viral intestinal infection, unspecified (principal); Z20.822 Contact with and (suspected) exposure to COVID-19; E11.65 Type 2 diabetes mellitus with hyperglycemia; E87.6 Hypokalemia; I10 Essential (primary) hypertension; Z79.4 Long term (current) use of insulin; Z79.899 Other long term (current) drug therapy
CPT/HCPCS: 36415; 80053; 81001; 83690; 85025; 87086; 87426; 87804; 93005; 96360; 99284; J7030; Q0162